=== PATIENT | male | born 1995 | race African-American/Black ===

== ENCOUNTER 2017-02-06 00:35 | Emergency (ER) | payer MEDICAID, OTHER ==
[~2017-02-06] VITALS: Ht 175.3 cm; Wt 71.0 kg
[2017-02-06 00:39] VITALS: BP 138/90; PULSE 70; RESP 18; TEMP 98.8; O2SAT 98
[2017-02-06] MEDS ORDERED: VENTAER INH (00:40)
--- NOTE | 2017-02-06 00:57 | PD ---
HPI Chief Complaint: Cold / Flu Symptoms Time Seen by Provider: 00:49 Travel History International Travel<30 days: No Contact w/Intl Traveler<30days: No Traveled to known affect area: No History of Present Illness HPI Patient comes in complaining of cold symptoms ongoing for a week. Patient states he feels like the cold symptoms as aggravating his asthma. Patient reports has been having cough is occasionally productive, subjective fevers at night, nonbilious and nonbloody vomit, nonbloody and non-melanotic diarrhea, and just not feeling well overall. Patient states he's been using his albuterol for symptomatic relief as well as taking [id number] cold and flu medication but continues to feel not well. Denies anything making it worse. Patient reports 1-2 episodes of vomiting and diarrhea per day. Patient denies any known sick contacts. Patient requesting something to drink. PFSH Past Medical History Asthma: Yes Diabetes: No Patient Takes Glucophage: No Diminished Hearing: No Respiratory: Yes Immunizations Current: Yes Tetanus Vaccination: < 5 Years Influenza Vaccination: Yes Past Surgical History Surgical History: No Previous Surgery Social History Alcohol Use: Yes (OCCASIONAL) Tobacco Use: No Substance Use: No Allergies-Medications (Allergen,Severity, Reaction): Coded Allergies: No Known Allergies (Unverified , 02/06/17) Reported Meds & Prescriptions Reported Meds & Active Scripts Active Medrol Dosepak (Methylprednisolone) 4 Mg Dspk 4 Mg PO DIRECTED Per Pharmacist direction Reported Ventolin Hfa 18 GM Inh (Albuterol Sulfate) 90 Mcg/Act Aer 2 Puff INH Q4-6H PRN Review of Systems Except as stated in HPI: all other systems reviewed are Neg Physical Exam Narrative GENERAL: Well-developed, well nourished, in no acute distress, and non-ill appearing. SKIN: Focused skin assessment warm and dry. HEAD: Atraumatic. Normocephalic. EYES: Pupils equal and round. EOMI. No scleral icterus. No injection or drainage. ENT: No nasal bleeding or discharge. Mucous membranes pink and moist. Tympanic membranes pearly ortega bilaterally. Posterior pharynx nonerythematous without exudate. Uvula is midline. No tenderness to facial sinuses to palpation. NECK: Trachea midline. No cervical lymphadenopathy. Supple. No nuclear rigidity. CARDIOVASCULAR: Regular rate and rhythm. No murmur appreciated. RESPIRATORY: No accessory muscle use. No respiratory distress. Clear to auscultation. Breath sounds equal bilaterally. GASTROINTESTINAL: Abdomen soft, non-tender, nondistended, and no guarding. Hepatic and splenic margins not palpable. Normal bowel sounds 4. No pulsatile mass. MUSCULOSKELETAL: No obvious deformities. No clubbing. No cyanosis. No edema. Full range of motion. NEUROLOGICAL: Awake and alert. No obvious cranial nerve deficits. Motor grossly within normal limits. Normal speech. PSYCHIATRIC: Appropriate mood and affect; insight and judgment normal. Data Data Last Documented VS Vital Signs Date Time Temp Pulse Resp B/P (MAP) Pulse Ox O2 Delivery O2 Flow Rate FiO2 02/06/17 01:09 97.5 65 20 122/71 (88) 02/06/17 00:39 98 Orders Orders Albuterol-Ipratropium Neb (Duoneb Neb) (02/06/17 01:00) Prednisone (Deltasone) (02/06/17 01:00) Chest, Single Ap (02/06/17 ) Ed Discharge Order (02/06/17 01:38) [facility] Medical Decision Making Medical Screen Exam Complete: Yes Emergency Medical Condition: Yes Differential Diagnosis Pneumonia, asthma exacerbation, viral syndrome, upper respiratory infection, bronchitis, other Narrative Course The patient looks great and improved well with Nebulizer and steroid medication. The patient is moving air well and in no distress nor significant dyspnea, and oxygen saturation is within normal limits. There is no clinical evidence to suggest pneumonia at this time. Diagnosis, plan of care and management were discussed with the patient who agreed with plan and feels better and ready to go home. The patient was instructed to return if worsen, worsening difficulty breathing or wheezing, persistent fever, chest pain or as needed. Patient in no obvious distress upon re-evaluation. All pertinent Radiology result(s) discussed with patient. Patient was asked if they wanted to speak to my attending, which the patient did not wish to do at this time. Any questions/ concerns in reference to patient diagnosis/condition discussed and clarified prior to patient's discharge. Reinforced sheer importance of close follow up with patient's primary physician or primary care clinic. Instructed patient to return to ED immediately, if symptoms return/worsen. Patient showed understanding of above instructions. Further instructions and recommendations were detailed in discharge paperwork. Patient ambulated without difficulty out of ED at discharge. Diagnosis Primary Impression: Asthma exacerbation Qualified Codes: J45.901 - Unspecified asthma with (acute) exacerbation Patient Instructions: Asthma (ED), General Instructions Additional Instructions: Follow-up with your primary care physician. Take all medication as prescribed. Continue using albuterol as previously instructed. Return to the emergency department if symptoms get worse. Med/Other Pt SpecificInfo: Prescription(s) given Scripts Methylprednisolone Dosepak (Medrol Dosepak) 4 Mg Dspk 4 MG PO DIRECTED, #1 DSPK 0 Refills Per Pharmacist direction Prov: Addie Jordan MD 02/06/17 Disposition: 01 DISCHARGE HOME Condition: Stable Garett Hobson Feb 06, 2017 00:57
[2017-02-06] MEDS ORDERED: RESP: ALBUTEROL 2.5 MG/IPRATROPIUM 0.5 MG NEB (SCH) INH ONE (01:00)
[2017-02-06] MEDS ORDERED: predniSONE 20 MG TAB PO ONE (01:00)
[2017-02-06 01:09] VITALS: BP 122/71; PULSE 65; RESP 20; TEMP 97.5
--- NOTE | 2017-02-06 01:30 | RADRPT ---
EXAM DATE/TIME: 02/06/2017 01:03 [facility] COMPARISON: No previous studies available for comparison. INDICATIONS : Short of breath. MEDICAL HISTORY : None. SURGICAL HISTORY : None. ENCOUNTER: Initial ACUITY: 1 day PAIN SCORE: 0/10 LOCATION: Bilateral chest FINDINGS: A single view of the chest demonstrates the lungs to be symmetrically aerated without evidence of mas s, infiltrate or effusion. The cardiomediastinal contours are unremarkable. Osseous structures are intact. CONCLUSION: 1. No acute cardiopulmonary disease. Peter Wilson MD on February 06, 2017 at 1:29 Board Certified Radiologist. This report was verified electronically.
[2017-02-06] MEDS ORDERED: MEDR4PAK PO (01:38)
== END 2017-02-06 03:50 | disposition home or self-care (01) ==
LOC: NEPD 00:35
DX: J45.901 Unspecified asthma with (acute) exacerbation (principal)
CPT/HCPCS: 71010; 94664; 99283; J7512

== ENCOUNTER 2017-07-18 17:00 | Emergency (ER) | payer OTHER ==
[~2017-07-18] VITALS: Ht 177.8 cm; Wt 73.0 kg
[~2017-07-18 17:00] MED LIST: MEDR4PAK PO; VENTAER INH
[2017-07-18 17:04] VITALS: BP 125/66; PULSE 63; RESP 17; TEMP 97.9; O2SAT 100
--- NOTE | 2017-07-18 17:11 | PD ---
HPI Chief Complaint: Musculoskeletal Complaint Time Seen by Provider: 17:08 Travel History International Travel<30 days: No Contact w/Intl Traveler<30days: No Traveled to known affect area: No History of Present Illness HPI 21-year-old -[place] male, presents emergency department with injury to the left anterior knee. Patient was practicing for a dance competition coming up this weekend, when he has hit his anterior knee on cement, once on Sunday, and again today. Patient now has pain and swelling and difficulty walking. Pain is in the anterior aspect of the knee at the base of the patella. Patient states pain is 9 out of 10. He has not taken anything for it, or iced it. He applied a knee brace that he had without much relief. He has no other injury. There is no abrasion or open wound. He is having difficulty ambulating secondary to pain he has no known drug allergies PFSH Past Medical History Asthma: Yes Diabetes: No Diminished Hearing: No Respiratory: Yes Immunizations Current: Yes Social History Alcohol Use: Yes (OCCASIONAL) Tobacco Use: No Substance Use: No Allergies-Medications (Allergen,Severity, Reaction): Coded Allergies: No Known Allergies (Unverified , 02/06/17) Reported Meds & Prescriptions Reported Meds & Active Scripts Active Ibuprofen 800 Mg Tab 800 Mg PO Q8H PRN Medrol Dosepak (Methylprednisolone) 4 Mg Dspk 4 Mg PO DIRECTED Per Pharmacist direction Reported Ventolin Hfa 18 GM Inh (Albuterol Sulfate) 90 Mcg/Act Aer 2 Puff INH Q4-6H PRN Review of Systems Except as stated in HPI: all other systems reviewed are Neg General / Constitutional: No: Fever Eyes: No: Visual changes HENT: No: Headaches Cardiovascular: No: Chest Pain or Discomfort Respiratory: No: Shortness of Breath Gastrointestinal: No: Abdominal Pain Genitourinary: No: Dysuria Musculoskeletal: Positive: Arthralgias, Limited ROM, Pain Skin: No Rash Neurologic: No: Weakness Psychiatric: No: Depression Endocrine: No: Polydipsia Hematologic/Lymphatic: No: Easy Bruising Physical Exam Narrative GENERAL: Patient appears in mild to moderate distress SKIN: Warm and dry. Normal color. Normal turgor. Normal. No lacerations. HEAD: Atraumatic. Normocephalic. EYES: Pupils equal and round. No scleral icterus. No injection or drainage. ENT: No nasal bleeding or discharge. Mucous membranes pink and moist. NECK: Trachea midline. Supple and nontender. CARDIOVASCULAR: Regular rate and rhythm. RESPIRATORY: No accessory muscle use. Clear to auscultation. Breath sounds equal bilaterally. MUSCULOSKELETAL: Extremities without clubbing, cyanosis, or edema. No obvious deformities. Patient has tenderness at the base of the patella with induration and effusion, but he is able to extend it fully as well as flex it 80%. There is mild crepitus with motion. X-rays ordered. NEUROLOGICAL: Awake and alert. No obvious cranial nerve deficits. Motor grossly within normal limits. Five out of 5 muscle strength in the arms and legs. Normal speech. PSYCHIATRIC: Appropriate mood and affect; insight and judgment normal. Data Data Last Documented VS Vital Signs Date Time Temp Pulse Resp B/P (MAP) Pulse Ox O2 Delivery O2 Flow Rate FiO2 07/18/17 17:04 97.9 63 17 125/66 (85) 100 Orders Orders Ibuprofen (Motrin) (07/18/17 17:15) Knee, Complete (4vws) (07/18/17 17:11) Ice/Cold Pack (07/18/17 17:11) Splint Or Brace Apply/Monitor (07/18/17 17:38) Crutches (07/18/17 17:38) Ed Discharge Order (07/18/17 17:41) MDM Medical Decision Making Medical Screen Exam Complete: Yes Emergency Medical Condition: Yes Differential Diagnosis Left knee contusion. Left knee pain. Left knee effusion. Left knee fracture. Narrative Course Patient is given 800 mg ibuprofen p.o. Ice is applied to the injured area. X-rays of the left knee are ordered. X-rays are negative for fracture dislocation. Patient is placed in a knee immobilizer and crutches for comfort Patient is given ibuprofen 800 mg 3 times daily with food #60. Patient should ice the area frequently for the next several days. Patient is to wear knee immobilizer and crutches as needed over the next week until improved. Recommend no dancing, prolonged standing or walking until improved. Diagnosis Primary Impression: Contusion of left patella Qualified Codes: S80.02XA - Contusion of left knee, initial encounter Patient Instructions: Crutch Instructions (ED), General Instructions, Knee Immobilizer (DC) Departure Forms: Work Release Enter return to work date: Jul 19, 2017 Special Instructions: Patient is to wear left knee brace and crutches 1 week Additional Instructions: X-rays are negative for fracture dislocation. Patient is placed in a knee immobilizer and crutches for comfort Patient is given ibuprofen 800 mg 3 times daily with food #60. Patient should ice the area frequently for the next several days. Patient is to wear knee immobilizer and crutches as needed over the next week until improved. Recommend no dancing, prolonged standing or walking until improved. Med/Other Pt SpecificInfo: Prescription(s) given Scripts Ibuprofen (Ibuprofen) 800 Mg Tab 800 MG PO Q8H Y for Pain/Inflammation, #60 TAB 0 Refills Prov: Jorge Castorena MD 07/18/17 Disposition: 01 DISCHARGE HOME Condition: Stable Pierce Cunningham Jul 18, 2017 17:11
[2017-07-18] MEDS ORDERED: IBUPROFEN 800 MG TAB PO ONE (17:15)
[2017-07-18] MEDS ORDERED: IBUP1TAB7 PO (17:41)
--- NOTE | 2017-07-18 17:41 | RADRPT ---
EXAM DATE/TIME: 07/18/2017 17:23 [facility] COMPARISON: No previous studies available for comparison. INDICATIONS : Patient complains of left knee pain and swelling near patella. MEDICAL HISTORY : None. SURGICAL HISTORY : None. ENCOUNTER: Initial ACUITY: 3 days PAIN SCORE: 8/10 LOCATION: Left Knee FINDINGS: Four view examination of the left knee demonstrates no evidence of fracture or dislocation. Bony min eralization is normal. The articular surfaces are intact. The suprapatellar soft tissues have a nor mal configuration. CONCLUSION: Unremarkable examination of the left knee. Nabil Pugh MD on July 18, 2017 at 17:39 Board Certified Radiologist. This report was verified electronically.
== END 2017-07-18 18:09 | disposition home or self-care (01) ==
LOC: NEPK 17:00
DX: S80.02XA Contusion of left knee, initial encounter (principal); W22.09XA Striking against other stationary object, initial encounter; Y93.41 Activity, dancing
CPT/HCPCS: 73564; 99283; E0113; L1830

== ENCOUNTER 2017-09-06 13:06 | Emergency (ER) | payer SELFPAY ==
[~2017-09-06] VITALS: Ht 175.3 cm; Wt 75.0 kg
[~2017-09-06 13:06] MED LIST changes: +IBUP1TAB7 PO
[2017-09-06 13:18] VITALS: BP 130/63; PULSE 62; RESP 18; TEMP 98.5; O2SAT 100
[2017-09-06 14:32] LABS: AUTOMATED NEUTROPHIL # 5.1 TH/MM3 (1.8-7.7); BASOPHIL % 0.4 % (0.0-2.0); EOSINOPHIL # 0.1 TH/MM3 (0-0.4); EOSINOPHIL % 0.6 % (0.0-4.0); HEMATOCRIT 41.8 % (39.0-51.0); HEMOGLOBIN 14.1 GM/DL (13.0-17.0); LYMPH % 33.8 % (9.0-44.0); LYMPHOCYTE # 3.1 TH/MM3 (1.0-4.8); MEAN CELL VOLUME 80.4 FL (80.0-100.0); MEAN CORPUSCULAR HEMOGLOBIN 27.1 PG (27.0-34.0); MEAN CORPUSCULAR HGB CONC 33.7 % (32.0-36.0); MEAN PLATELET VOLUME 8.7 FL (7.0-11.0); MONO % 8.6 % (0.0-8.0); MONOCYTE # 0.8 TH/MM3 (0-0.9); NEUT % 56.6 % (16.0-70.0); PLATELET COUNT 244 TH/MM3 (150-450); RED CELL DISTRIBUTION WIDTH 13.9 % (11.6-17.2); WHITE BLOOD COUNT 9.1 TH/MM3 (4.0-11.0)
[2017-09-06 14:51] LABS: ALBUMIN 3.6 GM/DL (3.4-5.0); ALT (GPT) 34 U/L (9-52); AST (GOT) 31 U/L (15-39); BICARBONATE 26.3 MEQ/L (21.0-32.0); BLOOD UREA NITROGEN 13 MG/DL (7-18); CALCIUM 8.8 MG/DL (8.5-10.1); CHLORIDE 106 MEQ/L (98-107); CREATININE 1.01 MG/DL (0.60-1.30); GLOMERULAR FILTRATION RATE 115 ML/MIN (>89); GLUCOSE,RANDOM 79 MG/DL (74-106); SODIUM (NA) 140 MEQ/L (136-145)
[2017-09-06 14:52] VITALS: BP 133/82; PULSE 62; RESP 18; O2SAT 99
[2017-09-06 14:53] LABS: ALKALINE PHOSPHATASE 223 U/L (45-117); TOTAL BILIRUBIN ADULT 0.9 MG/DL (0.2-1.0); TOTAL PROTEIN 8.3 GM/DL (6.4-8.2)
--- NOTE | 2017-09-06 15:26 | RADRPT ---
EXAM DATE: 09/06/2017 3:21 PM EDT AGE/SEX: 21 years / Male INDICATIONS: Short of breath and chest pain. CLINICAL DATA: This is the patient's initial encounter. Patient reports that signs and symptoms have been present for 1 day and indicates a pain score of 6/10. MEDICAL/SURGICAL HISTORY: Asthma. smokes None. COMPARISON: [facility] [place], CHEST SINGLE AP, 02/06/2017. . FINDINGS: A single AP view of the chest demonstrates the lungs to be symmetrically aerated without evidence of mass, infiltrate or effusion. The cardiomediastinal contours are unremarkable. Osseous structures a re intact. CONCLUSION: Negative examination. Electronically signed by: Nabil Pugh MD 09/06/2017 3:25 PM EDT
[2017-09-06] MEDS ORDERED: SODIUM CHLOR 0.9% 1000 ML INJ 1,000 ML IV ONE (15:30)
[2017-09-06 16:11] LABS: TROPONIN I LESS THAN 0.02 NG/ML (0.02-0.05)
[2017-09-06] MEDS ORDERED: RESP: ALBUTEROL 2.5 MG/3 ML NEB (SCH) INH ONE (16:30)
[2017-09-06] MEDS ORDERED: RESP: ALBUTEROL 2.5 MG/IPRATROPIUM 0.5 MG NEB (SCH) INH ONE (16:30)
--- NOTE | 2017-09-06 16:37 | PD ---
HPI Chief Complaint: Syncope/Near-Syncope Time Seen by Provider: 14:45 Travel History International Travel<30 days: No Contact w/Intl Traveler<30days: No Traveled to known affect area: No History of Present Illness HPI 21-year-old male with history of asthma, presents here with complaints of shortness of breath. Patient also reports chest tightness. 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 He denies any previous cardiac history. He denies any drugs of abuse other than marijuana. He states he smokes occasional marijuana. Patient also smokes cigarettes. There are no other complaints at the time of my examination. PFSH Past Medical History Asthma: Yes Diabetes: No Diminished Hearing: No Respiratory: Yes Immunizations Current: Yes ?: Not Social History Alcohol Use: Yes (OCCASIONAL) Tobacco Use: No Substance Use: Yes (daily weed ) Allergies-Medications (Allergen,Severity, Reaction): Coded Allergies: peanut (Verified Allergy, Severe, 09/06/17) Reported Meds & Prescriptions Reported Meds & Active Scripts Active Reported Ventolin Hfa 18 GM Inh (Albuterol Sulfate) 90 Mcg/Act Aer 2 Puff INH Q4-6H PRN Review of Systems Except as stated in HPI: all other systems reviewed are Neg General / Constitutional: No: Fever, Chills HENT: No: Headaches, Neck Pain Cardiovascular: No: Chest Pain or Discomfort, Palpitations Respiratory: Positive: Shortness of Breath, Wheezing, No: Cough Gastrointestinal: No: Nausea, Vomiting, Abdominal Pain Musculoskeletal: No: Weakness, Pain Neurologic: Positive: Syncope (Near syncope), No: Weakness, Dizziness, Headache , Incontinence, Seizures Psychiatric: Positive: Substance Abuse (Marijuana), No: Anxiety, Depression Physical Exam Narrative GENERAL: Well-developed well-nourished male in no acute respiratory distress. SKIN: Focused skin assessment warm/dry. HEAD: Atraumatic. Normocephalic. EYES: Pupils equal and round. No scleral icterus. No injection or drainage. ENT: No nasal bleeding or discharge. Mucous membranes pink and moist. NECK: Trachea midline. Supple. CARDIOVASCULAR: Regular rate and rhythm. No murmur appreciated. RESPIRATORY: No accessory muscle use. Clear to auscultation. Breath sounds equal bilaterally. GASTROINTESTINAL: Abdomen soft, non-tender, nondistended. Hepatic and splenic margins not palpable. MUSCULOSKELETAL: No obvious deformities. No clubbing. No cyanosis. No edema. NEUROLOGICAL: Awake and alert. No obvious cranial nerve deficits. Motor grossly within normal limits. Normal speech. PSYCHIATRIC: Appropriate mood and affect; insight and judgment normal. Data Data Last Documented VS Vital Signs Date Time Temp Pulse Resp B/P (MAP) Pulse Ox O2 Delivery O2 Flow Rate FiO2 09/06/17 16:50 99 21 09/06/17 14:52 62 18 133/82 (99) Room Air 09/06/17 13:18 98.5 Orders Orders Electrocardiogram (09/06/17 13:22) Complete Blood Count With Diff (09/06/17 13:22) Comprehensive Metabolic Panel (09/06/17 13:22) Iv Access Insert/Monitor (09/06/17 13:22) Ckmb (Isoenzyme) Profile (09/06/17 14:56) Troponin I (09/06/17 14:56) Chest, Single Ap (09/06/17 14:56) Drug Screen, Random Urine (09/06/17 14:56) Sodium Chlor 0.9% 1000 Ml Inj (Ns 1000 M (09/06/17 15:30) CKMB (09/06/17 13:55) CKMB% (09/06/17 13:55) Albuterol-Ipratropium Neb (Duoneb Neb) (09/06/17 16:30) Albuterol Neb (Albuterol Neb) (09/06/17 16:30) Labs Laboratory Tests Test 09/06/17 13:55 09/06/17 16:10 White Blood Count 9.1 TH/MM3 Red Blood Count 5.20 MIL/MM3 Hemoglobin 14.1 GM/DL Hematocrit 41.8 % Mean Corpuscular Volume 80.4 FL Mean Corpuscular Hemoglobin 27.1 PG Mean Corpuscular Hemoglobin Concent 33.7 % Red Cell Distribution Width 13.9 % Platelet Count 244 TH/MM3 Mean Platelet Volume 8.7 FL Neutrophils (%) (Auto) 56.6 % Lymphocytes (%) (Auto) 33.8 % Monocytes (%) (Auto) 8.6 % Eosinophils (%) (Auto) 0.6 % Basophils (%) (Auto) 0.4 % Neutrophils # (Auto) 5.1 TH/MM3 Lymphocytes # (Auto) 3.1 TH/MM3 Monocytes # (Auto) 0.8 TH/MM3 Eosinophils # (Auto) 0.1 TH/MM3 Basophils # (Auto) 0.0 TH/MM3 CBC Comment DIFF FINAL Differential Comment Blood Urea Nitrogen 13 MG/DL Creatinine 1.01 MG/DL Random Glucose 79 MG/DL Total Protein 8.3 GM/DL Albumin 3.6 GM/DL Calcium Level 8.8 MG/DL Alkaline Phosphatase 223 U/L Aspartate Amino Transf (AST/SGOT) 31 U/L Alanine Aminotransferase (ALT/SGPT) 34 U/L Total Bilirubin 0.9 MG/DL Sodium Level 140 MEQ/L Potassium Level 4.0 MEQ/L Chloride Level 106 MEQ/L Carbon Dioxide Level 26.3 MEQ/L Anion Gap 8 MEQ/L Estimat Glomerular Filtration Rate 115 ML/MIN Total Creatine Kinase 299 U/L Creatine Kinase MB 1.2 NG/ML Troponin I LESS THAN 0.02 NG/ML Urine Opiates Screen NEG Urine Barbiturates Screen NEG Urine Amphetamines Screen NEG Urine Benzodiazepines Screen NEG Urine Cocaine Screen NEG Urine Cannabinoids Screen POS MDM Medical Decision Making Medical Screen Exam Complete: Yes Emergency Medical Condition: Yes Differential Diagnosis Asthma exacerbation versus metabolic derangement versus heat exhaustion versus Narrative Course 21-year-old male presents today with near syncopal episode. Patient also reports wheezing and cough. 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 He is currently pain-free. Cardiac enzymes within normal limits. Laboratory tests are within normal limits. The patient did have expiratory wheezes noted on lung exam. Chest x-ray shows no evidence of acute findings. He has been given nebulizer treatments and feels much improved. He will have a prescription for an albuterol inhaler. He will be discharged and given information on the [facility]. He is requested a work note. Diagnosis Primary Impression: Near syncope Additional Impressions: Reactive airway disease Atypical chest pain Reported tobacco use Referrals: [facility] Additional Instructions: Stop smoking cigarettes. Follow-up with his daily clinic. Med/Other Pt SpecificInfo: Prescription(s) given Disposition: DISCHARGE HOME Condition: Stable Larry Oneil MD Sep 06, 2017 16:37
[2017-09-06 16:50] VITALS: O2SAT 99
[2017-09-06] MEDS ORDERED: VENTAER INH (18:31)
--- NOTE | 2017-09-07 15:21 | EKG ---
Date Performed: 09/06/2017 Time Performed: 13:57:34 PTAGE: 21 years EKG: SINUS BRADYCARDIA WITH SINUS ARRHYTHMIA WITH FIRST DEGREE AV BLOCK ABNORMAL ECG NO PREVIOUS TRACING DOCTOR: Johnnie Villela Interpretating Date/Time 09/07/2017 15:20:27
== END 2017-09-06 18:40 | disposition home or self-care (01) ==
LOC: NEPE 13:06
DX: R55 Syncope and collapse (principal); J45.909 Unspecified asthma, uncomplicated; R07.89 Other chest pain; R00.1 Bradycardia, unspecified; I49.8 Other specified cardiac arrhythmias; I44.0 Atrioventricular block, first degree; R94.31 Abnormal electrocardiogram [ECG] [EKG]; F12.90 Cannabis use, unspecified, uncomplicated; F17.210 Nicotine dependence, cigarettes, uncomplicated
CPT/HCPCS: 71045; 80053; 80307; 82550; 82552; 84484; 85025; 93005; 94640; 94664; 96360; 99284; J7030; J7613